=== PATIENT | female | born 1970 | race Caucasian/White ===

== ENCOUNTER → 2017-01-25 | Outpatient (CLI) | payer OTHER ==
--- NOTE | 2017-01-25 15:30 | MAMMOGRAPHY REPORT ---
BILATERAL DIGITAL SCREENING MAMMOGRAM TOMOSYNTHESIS WITH CAD: 01/25/2017 TECHNIQUE: Breast tomosynthesis in addition to standard 2D mammography was performed. Current study was also evaluated with a Computer Aided Detection (CAD) system. COMPARISON: Comparison is made to exams dated: 12/29/2015 mammogram, 12/25/2014 mammogram, 11/18/2013 mammogram, 10/18/2011 mammogram - [facility], 02/20/2007, and 02/20/2007. BREAST COMPOSITION: There are scattered areas of fibroglandular density in both breasts. FINDINGS: No suspicious masses, calcifications, or areas of architectural distortion are noted in ei ther breast. There has been no significant interval change compared to prior exams. IMPRESSION: ACR BI-RADS CATEGORY 1: NEGATIVE There is no mammographic evidence of malignancy. A 1 year screening mammogram is recommended. The pa tient will receive written notification of the results. Approximately 10% of breast cancers are not detected with mammography. A negative mammographic report should not delay biopsy if a clinically suggestive mass is present. Rebecca Brambila M.D. ah/:01/25/2017 08:44:12 Dumper Operator: Betsy MATHEW(R)(M), [facility] letter sent: Normal 1/2 BI-RADS Code: ACR BI-RADS Category 1: Negative
== END | disposition home or self-care (01) ==
LOC: C.MAMM 08:21
PROVIDERS: ATTEND Family Medicine
DX: Z12.31 Encounter for screening mammogram for malignant neoplasm of breast (principal)

== ENCOUNTER 2017-03-26 05:31 | Inpatient (IN) | payer OTHER, SELFPAY ==
--- NOTE | 2017-03-22 09:33 | PAT Medication Instructions ---
Service Date Mar 22, 2017. Current Home Medication List [Vitamin D], 2 TAB PO QPM [vitamin c], 1 TAB PO QPM Medication Instructions For Your Scheduled Surgery - Take the following medications as scheduled the night before surgery: [Vitamin D], 2 TAB PO QPM [vitamin c], 1 TAB PO QPM If you have any questions please call us at [phone] or [phone] or [phone]
[2017-03-22 10:52] LABS: BASO % 0.6 %; BASO ABS # 0.05 K/uL (0-0.2); EOS % 1.8 %; EOS ABS # 0.15 K/uL (0-0.5); HEMOGLOBIN 13.9 g/dL (12.0-16.0); IG# 0.01 K/uL (0.00-0.02); LYMPH % 29.2 %; LYMPH ABS # 2.43 K/uL (1.2-3.4); MEAN CELL VOLUME 88.7 fL (80-100); MEAN CORPUSCULAR HEMOGLOBIN 30.1 pg (25-34); MEAN CORPUSCULAR HGB CONC 33.9 g/dl (32-36); MEAN PLATELET VOLUME 9.3 fL (7.4-10.4); MONO % 10.3 %; MONO ABS # 0.86 K/uL (0.11-0.59); NEUT ABS # 4.83 K/uL (1.4-6.5); PLATELET COUNT 358 K/uL (130-400); RED CELL DISTRIBUTION WIDTH CV 13.2 % (11.5-14.5); RED CELL DISTRIBUTION WIDTH SD 42.4 fL (36.4-46.3); WHITE BLOOD COUNT 8.33 K/uL (4.8-10.8)
[2017-03-22 10:59] LABS: BLOOD UREA NITROGEN 14 mg/dl (7-18); CALCIUM 8.9 mg/dl (8.5-10.1); CARBON DIOXIDE 30 mmol/L (21-32); CREATININE 0.62 mg/dl (0.60-1.20); GLUCOSE 89 mg/dl (70-99); POTASSIUM 4.2 mmol/L (3.5-5.1); SODIUM 138 mmol/L (136-145)
[2017-03-22 11:02] VITALS: BMI 42.0
[2017-03-26] VITALS (9 sets, daily range): BP systolic 97–134; BP diastolic 64–84; PULSE 60–84; TEMP 36.3–36.9; O2SAT 94–100; Ht 162.6 cm; Wt 112.2 kg
[~2017-03-26] VITALS: Ht 162.6 cm; Wt 112.2 kg
[~2017-03-26 05:31] MED LIST: VITAMIN D PO; vitamin c PO
[2017-03-26] MEDS ORDERED: LACTATED RINGER'S 1000ML 1,000 ML IV SCH (06:00)
[2017-03-26] MEDS ORDERED: CEFAZOLIN 2000MG IV PUSH 10 ML IV SCH (06:00)
[2017-03-26] MEDS ORDERED: IBUP-103 PO (06:04)
[2017-03-26] MEDS ORDERED: ACETAMINOPHEN 1000 MG/100 ML IV IV ONE (06:37)
[2017-03-26] MEDS ORDERED: FENTANYL CITRATE INJ 50 MCG/1 ML 2 ML VIAL ONE ×2 (06:55→09:39)
[2017-03-26] MEDS ORDERED: MIDAZOLAM HCL 1 MG/ML 2ML VIAL ONE (06:55)
[2017-03-26] MEDS ORDERED: DEXAMETHASONE SOD INJ 4 MG/ML VIAL ONE (06:55)
[2017-03-26] MEDS ORDERED: ONDANSETRON INJ 2 MG/ML 2 ML VIAL ONE (06:55)
[2017-03-26] MEDS ORDERED: CISATRACURIUM BESYLATE IV SOLN 2 MG/ML 10 ML VIAL ONE (06:55)
[2017-03-26] MEDS ORDERED: SUCCINYLCHOLINE CHLORIDE 20 MG/ML 10 ML VIAL IV ONE (06:55)
[2017-03-26] MEDS ORDERED: LIDOCAINE HCL 2% 2 ML VIAL (20MG/ML) ONE (06:55)
[2017-03-26] MEDS ORDERED: PROPOFOL IV EMULSION 10 MG/ML 20 ML VIAL IV ONE (06:55)
[2017-03-26] MEDS ORDERED: HYDROmorphone INJ 2 MG/ML SYR/VIAL ONE (06:56)
--- NOTE | 2017-03-26 06:58 | History & Physical Bridge Note ---
H&P Re-Evaluation Bridge Note: I have examined the patient, reviewed the History & Physical and in the interval since the performance of the History & Physical I have noted the following changes of clinical significance: No changes noted
[2017-03-26] MEDS ORDERED: SODIUM CHLORIDE 0.9% INJ 10 ML VIAL ONE (07:02)
[2017-03-26] MEDS ORDERED: EpINEphrine INJ 1MG/ML AMP 1 MG/ML AMP ONE ×2 (07:06→08:10)
[2017-03-26] MEDS ORDERED: LIDOCAINE HCL 1% 20 ML VIAL ONE ×2 (07:07→08:10)
[2017-03-26] MEDS ORDERED: BUPIVACAINE 0.25% 30 ML VIAL ONE (07:07)
[2017-03-26] MEDS ORDERED: BUPIVACAINE 0.5 % 5 MG/1 ML MPF 30ML VIAL ONE (07:08)
[2017-03-26] MEDS ORDERED: LIDOCAINE/EPINEPHRINE 1% 20 ML VIAL ONE (07:13)
[2017-03-26] MEDS ORDERED: PHENYLEPHRINE 100MCG/ML 5ML SYR ONE (08:23)
[2017-03-26] MEDS ORDERED: EpHEDrine SULFATE INJ 50 MG/ML AMP IV PRN (10:45)
[2017-03-26] MEDS ORDERED: FLUMAZENIL 0.1 MG/1 ML 10 ML VIAL IV PRN (10:45)
[2017-03-26] MEDS ORDERED: ATROPINE SULFATE 0.1 MG/ML 5ML SYR IV PRN (10:45)
[2017-03-26] MEDS ORDERED: PROMETHAZINE HCL INJ 12.5 MG in SODIUM CHLORIDE 0.9% 50ML 50 ML IV PRN ×2 (10:45→12:00)
[2017-03-26] MEDS ORDERED: ONDANSETRON INJ 2 MG/ML 2 ML VIAL IV PRN ×2 (10:45→12:00)
[2017-03-26] MEDS ORDERED: NALOXONE HCL 0.4 MG/1 ML VIAL/CARP IV PRN (10:45)
[2017-03-26] MEDS ORDERED: LABETALOL HCL IV 5 MG/ML 20ML IV PRN (10:45)
[2017-03-26] MEDS ORDERED: CEFAZOLIN SOD 1 GM VIAL ONE (10:47)
[2017-03-26] MEDS ORDERED: GLYCOPYRROLATE INJ 0.2 MG/ML VIAL ONE (11:23)
[2017-03-26] MEDS ORDERED: NEOSTIGMINE METHYLSULFATE 5 MG/5 ML SYR ONE (11:23)
--- NOTE | 2017-03-26 11:44 | [facility] Post Operative Brief Note ---
Immediate Operative Summary Operative Date Mar 26, 2017. Pre-Operative Diagnosis abdominal pannus Post-Operative Diagnosis abdominal pannus Procedure(s) Performed Panniculectomy and Suction Assisted Lipectomy of Abdomen Surgeon Dr. Irina Spann Detention Officer Surgeon(s) Syeda Haddad PA-C Estimated Blood Loss 50ml Findings none Specimens A.) Abdominal Pannus Drains NURYS x2 Anesthesia general Complication(s) None Disposition Recovery Room / PACU
[2017-03-26] MEDS ORDERED: OXAZEPAM 10MG CAP PO PRN (12:00)
[2017-03-26] MEDS ORDERED: DiphenhydrAMINE HCL 50 MG/ML VIAL IV PRN (12:00)
[2017-03-26] MEDS ORDERED: MoRPHine SULFATE 4 MG/ML 1 ML CARP\\VIAL IV PRN (12:00)
[2017-03-26] MEDS ORDERED: ACETAMINOPHEN 325 MG TAB PO PRN (12:00)
[2017-03-26] MEDS ORDERED: OXYCODONE/ACETAMINOPHEN 5-325 TAB PO PRN ×2 (12:00)
[2017-03-26] MEDS ORDERED: MoRPHine SULFATE 2 MG/ML CARP IV PRN ×2 (12:00)
[2017-03-26] MEDS: HYDROmorphone INJ 1 MG/ML SYR IV PRN ×4 (12:15→12:53)
--- NOTE | 2017-03-26 13:24 | Anesthesiology Progress Note ---
Anesthesia Post Op Note Date & Time Mar 26, 2017 at 13:24 Vital Signs Pain Intensity: 2 Vital Signs Past 12 Hours Date Time Temp Pulse Resp B/P (MAP) Pulse Ox O2 Delivery O2 Flow Rate FiO2 03/26/17 13:10 133/77 03/26/17 13:08 59 16 03/26/17 13:08 61 16 95 03/26/17 13:05 127/84 03/26/17 13:03 70 12 99 03/26/17 13:03 73 12 03/26/17 13:00 128/89 03/26/17 12:58 71 11 100 03/26/17 12:58 75 11 03/26/17 12:55 133/81 03/26/17 12:53 66 14 03/26/17 12:53 66 14 100 03/26/17 12:50 130/83 03/26/17 12:48 75 5 100 03/26/17 12:48 79 5 03/26/17 12:47 36.8 03/26/17 12:45 73 16 03/26/17 12:45 73 16 125/75 96 03/26/17 12:40 67 16 03/26/17 12:40 66 16 130/76 100 03/26/17 12:35 64 9 03/26/17 12:35 64 9 126/88 100 03/26/17 12:30 64 7 124/75 100 03/26/17 12:30 64 7 03/26/17 12:25 68 12 129/76 100 03/26/17 12:25 67 12 03/26/17 12:20 81 9 03/26/17 12:20 82 9 121/73 96 03/26/17 12:15 91 15 03/26/17 12:15 92 15 132/73 100 03/26/17 12:12 135/78 03/26/17 12:05 36.4 88 12 136/74 100 Oxymask 10 03/26/17 05:55 36.7 80 18 134/84 (101) 100 Room Air Notes Mental Status: alert / awake / arousable, participated in evaluation Pt Amnestic to Procedure: Yes Nausea / Vomiting: adequately controlled Pain: adequately controlled Airway Patency, RR, SpO2: stable & adequate BP & HR: stable & adequate Hydration State: stable & adequate Anesthetic Complications: no major complications apparent
[2017-03-26 14:06] LABS: HEMATOCRIT 39.1 % (37-47); HEMOGLOBIN 13.4 g/dL (12.0-16.0); MEAN CELL VOLUME 87.1 fL (80-100); MEAN CORPUSCULAR HEMOGLOBIN 29.8 pg (25-34); MEAN CORPUSCULAR HGB CONC 34.3 g/dl (32-36); MEAN PLATELET VOLUME 8.8 fL (7.4-10.4); PLATELET COUNT 324 K/uL (130-400); RED CELL DISTRIBUTION WIDTH CV 13.1 % (11.5-14.5); RED CELL DISTRIBUTION WIDTH SD 42.2 fL (36.4-46.3); WHITE BLOOD COUNT 19.99 K/uL (4.8-10.8)
[2017-03-26 14:27] LABS: CREATININE 0.69 mg/dl (0.60-1.20)
[2017-03-26] MEDS: CEFAZOLIN IV 2,000 MG in SYRINGE 0 ML IV SCH (17:26)
--- NOTE | 2017-03-26 18:05 | OPERATIVE REPORT ---
DATE OF OPERATION: 03/26/2017 PREOPERATIVE DIAGNOSIS: Abdominal lipodystrophy. POSTOPERATIVE DIAGNOSIS: Same. PROCEDURE: Panniculectomy with suction-assisted lipectomy. SURGEON: Dr. Irina Spann. STAIN WIPER: Syeda Haddad PA-C. ANESTHESIA: General. COMPLICATIONS: None. INDICATION FOR THE PROCEDURE: The patient is a 46-year-old female who presented to my office with concerns of an abdominal pannus causing irritation underneath the pannus with excess skin overhanging the pubic area, requiring treatment with antifungal powders. At the initial consultation, she discussed that she desired to undergo liposuction to improve the abdominal contour. We discussed that given her significant obesity, formal abdominoplasty with muscle plication would not be of benefit. BRIEF DESCRIPTION OF THE PROCEDURE: The risks, benefits and alternatives of the procedure were explained to the patient who agreed and signed consent. She was identified and marked in the preoperative holding area. She was brought to the operating room where she was positioned supine and placed under anesthesia without incident. Shultz catheter was inserted. Surgical site was prepped and draped sterilely. A time-out procedure was performed. Markings were assessed. I began the procedure with a cosmetic liposuction of the abdomen and flanks. At each cannula insertion site, 1% lidocaine with epinephrine was used to anesthetize the incision. A 15 blade scalpel was used to make the separate stab incisions. Access incisions were made in the umbilicus upper lateral abdomen and lower lateral and mid abdomen. I began with infiltration of tumescent solution. A total of 2400 mL of lactated Ringer's mixed with lidocaine and epinephrine were used to tumesce the area using super wet technique. Following this, a 4 mm cannula was inserted and pretunnelled in each of these sites. Once I felt the tissue was adequately loosened, I began the liposuction portion of the procedure using a 4 mm cannula. A total of 2000 mL of lipoaspirate were obtained in the upper central abdomen and flanks. Endpoint was a uniform pinch and bloody aspirate. Given that panniculectomy is being performed simultaneously, I attempted to keep all of the liposuction deep to Mike's fascia. Once this portion of the procedure had been completed, then 1% lidocaine with epinephrine was used to anesthetize the planned incision along the lower abdomen. The inferior most point was marked at 6.5 cm above the vulvar commissure. A 15 blade scalpel was used to make the incision, which extended from ASIS bilaterally and posteriorly to incorporate the residual pannus which began at the lateral buttocks. The incision was deepened using electrocautery through dermis and subcutaneous tissue, Mike's fascia until the anterior abdominal wall was reached. Care was taken to perform this dissection in a cephalad fashion, essentially skiving the anterior abdominal fat in order to avoid entering the inguinal area. Dissection was carried along the anterior abdominal wall fascia up to the level of the umbilicus. Umbilicus was circumscribed using a 15 blade scalpel. Dissection then continued around the umbilicus and just superiorly. Some additional dissection was performed to release the tissue superiorly and allow for inset of the umbilicus. Hemostasis was achieved with electrocautery. The bed was placed in a flexed position and the abdominal flap was brought together in midline along the inferior aspect of the incision at the vulvar commissure. Two 15 [place] Ronald drains were placed, brought out through a separate stab incision. The abdominal skin flaps were marked for resection and 15 blade scalpel was used to make this incision which was deepened through electrocautery, subcutaneous fat, Mike's fascia. There was some mild residual subscarpal fat present as a result of liposuction and this was removed from the abdominal flap. Tissue was removed bilaterally and passed off as specimen. The neoumbilicus position was marked in an inverted triangle fashion. The wound was reapproximated in a lateral to medial direction bilaterally using 2-0 Vicryl Mike's fascia sutures, 2-0 Vicryl deep dermal sutures, a 2-0 PDO Quill running superficial dermal suture and skin was closed using 3-0 Monocryl running subcuticular suture. The umbilical incision was made using 15 blade scalpel and deepened using electrocautery. The umbilicus was retrieved through the incision and inset using 4-0 chromic half buried vertical and horizontal mattress sutures. Following this, Dermabond Prineo was applied. Drains were sutured into place using 3-0 nylon suture and the umbilicus was packed with Xeroform. Dry dressings and an abdominal binder were placed. ESTIMATED BLOOD LOSS: 50 mL. Cosmetic time and insurance time were marked in the nursing documentation. The patient was awakened and transferred to recovery in satisfactory condition. Syeda Haddad PA-C was present and scrubbed throughout the entire procedure, instrumental in assisting in retraction of the pannus, achieving hemostasis, and assisting in simultaneous wound closure. I attest to the content of the Intraoperative Record and any orders documented therein. Any exceptions are noted below. SAMRA
[2017-03-26] MEDS ORDERED: VITAMIN D PO SCH (21:00)
[2017-03-26] MEDS: LACTATED RINGER'S 1000ML 1,000 ML IV SCH (21:37)
[2017-03-26] MEDS ORDERED: NURSING VERBAL MED ORDER ONE (21:45)
[2017-03-27] MEDS: CEFAZOLIN IV 2,000 MG in SYRINGE 0 ML IV SCH (00:08)
[2017-03-27 00:10] VITALS: O2SAT 100
[2017-03-27 03:43] VITALS: BP 93/61; PULSE 70; TEMP 36.7; O2SAT 96
[2017-03-27 06:43] LABS: BASO % 0.2 %; BASO ABS # 0.03 K/uL (0-0.2); EOS % 0.2 %; EOS ABS # 0.03 K/uL (0-0.5); HEMATOCRIT 33.8 % (37-47); HEMOGLOBIN 11.4 g/dL (12.0-16.0); IG# 0.04 K/uL (0.00-0.02); LYMPH % 11.6 %; LYMPH ABS # 1.51 K/uL (1.2-3.4); MEAN CELL VOLUME 88.3 fL (80-100); MEAN CORPUSCULAR HEMOGLOBIN 29.8 pg (25-34); MEAN CORPUSCULAR HGB CONC 33.7 g/dl (32-36); MEAN PLATELET VOLUME 8.9 fL (7.4-10.4); MONO % 12.3 %; NEUT % 75.4 %; NEUT ABS # 9.81 K/uL (1.4-6.5); PLATELET COUNT 281 K/uL (130-400); RED CELL DISTRIBUTION WIDTH CV 13.5 % (11.5-14.5); RED CELL DISTRIBUTION WIDTH SD 43.7 fL (36.4-46.3); WHITE BLOOD COUNT 13.02 K/uL (4.8-10.8)
[2017-03-27 06:50] LABS: PTT PATIENT 25.4 SECONDS (21.0-31.0)
[2017-03-27 06:54] VITALS: BP 100/65; PULSE 77; TEMP 36.4; O2SAT 98
[2017-03-27 07:09] LABS: CALCIUM 8.7 mg/dl (8.5-10.1); CREATININE 0.53 mg/dl (0.60-1.20); POTASSIUM 3.6 mmol/L (3.5-5.1)
--- NOTE | 2017-03-27 07:44 | Surgery Progress Note ---
Surgery Progress Note Date of Service Mar 27, 2017. Subjective Post OP Day: 1 + feeling well, + ambulating, + pain controlled, + nausea (resolved), + diet ( regular), No complaints Objective Vital Signs: Date Time Temp Pulse Resp B/P (MAP) Pulse Ox O2 Delivery O2 Flow Rate FiO2 03/27/17 06:54 36.4 77 16 100/65 (77) 98 Room Air 03/27/17 03:43 36.7 70 16 93/61 (72) 96 Room Air 03/27/17 00:10 100 Room Air 03/26/17 23:28 36.6 76 16 97/64 (75) 94 Room Air 03/26/17 18:40 36.9 84 18 119/80 (93) 98 Room Air 03/26/17 17:00 100 Nasal Cannula 2.0 03/26/17 16:20 36.4 72 18 107/72 (84) 100 Nasal Cannula 2.5 03/26/17 15:23 36.3 73 18 124/81 (95) 99 Nasal Cannula 2.5 03/26/17 14:20 60 15 115/73 (87) 100 Nasal Cannula 2.0 03/26/17 13:46 69 16 122/75 (91) 99 Nasal Cannula 2.0 03/26/17 13:20 98 Nasal Cannula 2.0 03/26/17 13:20 98 Nasal Cannula 2.0 03/26/17 13:10 133/77 03/26/17 13:08 59 16 03/26/17 13:08 61 16 95 03/26/17 13:05 127/84 03/26/17 13:03 70 12 99 03/26/17 13:03 73 12 03/26/17 13:00 128/89 03/26/17 12:58 71 11 100 03/26/17 12:58 75 11 03/26/17 12:55 133/81 03/26/17 12:53 66 14 03/26/17 12:53 66 14 100 03/26/17 12:50 130/83 03/26/17 12:48 75 5 100 03/26/17 12:48 79 5 03/26/17 12:47 36.8 03/26/17 12:45 73 16 03/26/17 12:45 73 16 125/75 96 03/26/17 12:40 67 16 03/26/17 12:40 66 16 130/76 100 03/26/17 12:35 64 9 03/26/17 12:35 64 9 126/88 100 03/26/17 12:30 64 7 124/75 100 03/26/17 12:30 64 7 03/26/17 12:25 68 12 129/76 100 03/26/17 12:25 67 12 03/26/17 12:20 81 9 03/26/17 12:20 82 9 121/73 96 03/26/17 12:15 91 15 03/26/17 12:15 92 15 132/73 100 03/26/17 12:12 135/78 03/26/17 12:05 36.4 88 12 136/74 100 Oxymask 10 Physical Exam: Ronald drainage (bloody and serous) General Appearance: WD/WN, no apparent distress Incision(s): clean, dry, intact, no erythema Laboratory Results: Results Past 24 Hours Test 03/26/17 13:51 03/27/17 06:22 Range/Units White Blood Count 19.99 13.02 4.8-10.8 K/uL Red Blood Count 4.49 3.83 4.2-5.4 M/uL Hemoglobin 13.4 11.4 12.0-16.0 g/dL Hematocrit 39.1 33.8 37-47 % Mean Corpuscular Volume 87.1 88.3 80-100 fL Mean Corpuscular Hemoglobin 29.8 29.8 25-34 pg Mean Corpuscular Hemoglobin Concent 34.3 33.7 32-36 g/dl RDW Standard Deviation 42.2 43.7 36.4-46.3 fL RDW Coefficient of Variation 13.1 13.5 11.5-14.5 % Platelet Count 324 281 130-400 K/uL Mean Platelet Volume 8.8 8.9 7.4-10.4 fL Prothrombin Time 10.2 10.8 9.0-12.0 SECONDS Prothromb Time International Ratio 1.0 1.0 0.9-1.1 Creatinine 0.69 0.53 0.60-1.20 mg/dl Est Creatinine Clear Calc Drug Dose 126.3 164.5 ml/min Estimated GFR () 121.8 132.9 Estimated GFR (Non- 105.1 114.7 Neutrophils (%) (Auto) 75.4 % Lymphocytes (%) (Auto) 11.6 % Monocytes (%) (Auto) 12.3 % Eosinophils (%) (Auto) 0.2 % Basophils (%) (Auto) 0.2 % Neutrophils # (Auto) 9.81 1.4-6.5 K/uL Lymphocytes # (Auto) 1.51 1.2-3.4 K/uL Monocytes # (Auto) 1.60 0.11-0.59 K/uL Eosinophils # (Auto) 0.03 0-0.5 K/uL Basophils # (Auto) 0.03 0-0.2 K/uL Immature Granulocyte % (Auto) 0.3 % Immature Granulocyte # (Auto) 0.04 0.00-0.02 K/uL Activated Partial Thromboplast Time 25.4 21.0-31.0 SECONDS Partial Thromboplastin Ratio 1.0 Sodium Level 139 136-145 mmol/L Potassium Level 3.6 3.5-5.1 mmol/L Chloride Level 104 98-107 mmol/L Carbon Dioxide Level 28 21-32 mmol/L Anion Gap 7.0 3-11 mmol/L Blood Urea Nitrogen 11 7-18 mg/dl BUN/Creatinine Ratio 20.1 10-20 Random Glucose 102 70-99 mg/dl Calcium Level 8.7 8.5-10.1 mg/dl Assessment & Plan s/p panniculectomy with suction assisted lipectomy 1. doing well POD #1. expected serous drainage on ABD pads\ 2. d/c home today with f/u in office tomorrow. post-op activity restrictions reviewed with the patient
--- NOTE | 2017-03-27 07:48 | Discharge Instructions ---
Discharge Instructions Date of Service Mar 27, 2017. Admission Reason for Admission: Lipodystrophy Discharge Discharge Diagnosis / Problem: lipodystrophy, abdominal pannus Discharge Goals Goal(s): Decrease discomfort, Improve function Activity Recommendations Activity Limitations: per Instructions/Follow-up section ACTIVITY RECOMMENDATIONS: __Normal activities _x_No bending, lifting or straining. Do not stand or lay flat until comfortable. _x_No driving __Driving allowed when you are off pain medications _x_Walking permitted __You should have help at home for ___ days DRESSINGS: __No dressings required _x_Keep dressings dry/in place until first office visit __Remove dressings ___ and leave dressings off __Apply ice ___ days __Remove dressings and reapply garment __Apply antibiotic ointment (Bacitracin, Neosporin, etc) to wounds 3-4 times/ day for 10 days BATHING: _x_Keep dressings dry _x_Sponge bathing permitted away from incision area __Showering permitted _x_No swimming, hot tubs or soaking in a tub MEDICATIONS: Resume previous medications unless instructed otherwise by your surgeon. _x_Do not use aspirin, Motrin, Advil or Ibuprofen as these may promote bleeding. Please use Tylenol. _x_Prescription(s) provided: pain medication provided at your last office visit OTHER INSTRUCTIONS: _x_Record drain output 2-3 times per day. call office when drain output ins < 10cc/24 hours per drain to have it removed. You may have one drain removed before the other is ready if needed SPECIAL CARE INSTRUCTIONS: * It is normal to have a mild fever after surgery. If your temperature is higher than 101.5 degrees F, please call the office at [phone]. * Constipation is a typical side effect of pain medication. An over-the- counter stool softener will help relieve this. * Leaking around surgical drains may occur and should not cause concern. Sometimes these drains become clogged. If this happens, remove the bulb and milk the clot out of the tube, then replace the bulb. * Drainage from wounds after liposuction is normal and should be expected. Garments will become soiled. You should protect furniture and bedding. This drainage should mostly subside within 2-3 days. Leave garments in place unless instructed to remove them. * If you have unusual drainage from a wound or are concerned you have an infection or have any questions or concerns, please call the office at [phone]. FOLLOW UP VISIT: If not already scheduled, please call the office, , when you return home after surgery to schedule an appointment to be seen in __1_ days. . Current Hospital Diet Patient's current hospital diet: Regular Diet Discharge Diet Recommended Diet: Regular Diet Procedures Procedures Performed: Panniculectomy and Suction Assisted Lipectomy of Abdomen Pending Studies Studies pending at discharge: yes List of pending studies: pathology Medical Emergencies . Who to Call and When: Medical Emergencies: If at any time you feel your situation is an emergency, please call 911 immediately. . Non-Emergent Contact Non-Emergency issues call your: Primary Care Provider, Surgeon . "Provider Documentation" section prepared by Syeda Haddad. . VTE Core Measure Inpt VTE Proph given/why not?: Enoxaparin (Lovenox)SQ, SCD's [place] Drug Monitoring Program Search Results: no issues identified
--- NOTE | 2017-03-27 07:52 | Discharge Summary ---
Discharge Summary Date of Service Mar 27, 2017. Admission Date/Reason Mar 26, 2017 at 12:04 Lipodystrophy. Discharge Date/Disposition Mar 27, 2017 Home Diagnosis Principal Diagnosis: abdominal pannus, lipodystrophy Procedure(s) Performed panniculectomy with suction assisted lipectomy Medication Reconciliation Continued Medications: [vitamin c] () 1 TAB PO QPM [Vitamin D] () 2 TAB PO QPM Discontinued Medications: Ibuprofen Tab (Advil) 200 Mg Tab 400-600 MG PO Q6H, TAB Admission Physical Exam As per Admitting History & Physical. Hospital Course Patient presented to [facility] with history of abdominal pannus. She was taken to the OR and underwent panniculectomy with suction assisted lipectomy. She tolerated the procedure well and there were no intraoperative complications. She was taken to recovery and transferred to med/surg for observation. On POD#1, her pain was controlled and she had ambulated. She did have some nausea with ambulation which resolved with rest. She tolerated a regular diet. On exam, her incision was clean, dry, intact and drains had expected bloody and serous output. She was discharged home with instructions to follow-up in the office the following day. Discharge Instructions Please refer to the electronic Patient Visit Report (Discharge Instructions) for additional information.
[2017-03-27] MEDS ORDERED: MULTIVITAMIN TAB PO SCH (09:00)
[2017-03-27] MEDS ORDERED: ENOXAPARIN 40 MG/0.4 ML SYR SQ SCH (09:00)
[2017-03-27 09:25] VITALS: BP 100/65; PULSE 77; TEMP 36.4; O2SAT 98
[2017-03-27] MEDS: LACTATED RINGER'S 1000ML 1,000 ML IV SCH (09:52)
[2017-03-27 12:17] VITALS: BP 106/69; PULSE 77; O2SAT 95
== END 2017-03-27 13:59 | disposition home or self-care (01) | DRG 620 ==
LOC: C.ACU 05:31 → C.3E 12:04 → ENRESERV 12:27
PROVIDERS: ADMIT Plastic Surgery; ATTEND Plastic Surgery
PROC: 0JD90ZZ Extraction of Buttock Subcutaneous Tissue and Fascia, Open Approach (ICD-10-PCS; principal; 2017-03-26 07:30)
PROC: 0JD80ZZ Extraction of Abdomen Subcutaneous Tissue and Fascia, Open Approach (ICD-10-PCS; principal; 2017-03-26 07:30)
PROC: 0J083ZZ Alteration of Abdomen Subcutaneous Tissue and Fascia, Percutaneous Approach (ICD-10-PCS; principal; 2017-03-26 07:30)
PROC: 0J063ZZ Alteration of Chest Subcutaneous Tissue and Fascia, Percutaneous Approach (ICD-10-PCS; principal; 2017-03-26 07:30)
DX: E88.1 Lipodystrophy, not elsewhere classified (principal); Z68.41 Body mass index [BMI] 40.0-44.9, adult; E65 Localized adiposity; E66.9 Obesity, unspecified; N92.0 Excessive and frequent menstruation with regular cycle